=== PATIENT | male | born 1995 | race Caucasian/White ===

== ENCOUNTER 2017-02-17 05:28 | Emergency (ER) | payer OTHER ==
[~2017-02-17] VITALS: Ht 182.9 cm; Wt 140.9 kg
[2017-02-17 05:32] VITALS: BP 129/78; RESP 17; O2SAT 96
--- NOTE | 2017-02-17 05:54 | ED.REPORT ---
HPI-Sore Throat ONLY HPI/PE done Feb 17, 2017 ED Provider: Dr. Yamil Gutierrez M.D. A 21 year old male with a history of asthma presents to the ED with problems swallowing onset one hour prior to arrival. The patient feels as though a piece of the steak he was eating is stuck in his throat. The patient has had similar episodes of this, lasting up to 17 hours at a time. His symptoms resolved just before the interview and he denies other symptoms at this time. The patient requests a GI referral. Nursing Notes Stated Complaint: POSS ESOPHOGEAL SPASMS Chief Complaint: ENT & Mouth Nursing Notes Reviewed: Yes Allergies: Coded Allergies: No Known Allergies (Unverified , 02/17/17) General Time Seen by MD: 05:51 Chief Complaint Other (Problem with swallowing) Hx Obtained From: Patient Arrived By: Walk-in Onset Occurred: 1 - 4 hours ago Symptom Duration: Since onset Severity: Current: No pain currently Severity: Maximum: No pain Pertinent Negative: Pt denies other symptoms Pertinent Negative: Relieved by nothing Context: Immunization Status General: Unknown Recent Healthcare: No recent doctor visit Similar Sx Previous: Yes Past Medical History Past Medical History Asthma Past Surgical History None reported Smoking History Unknown if Ever Smoker Social History Other Social History: Good social support Ambulatory Status Independent Review of Systems Review of Systems Note: + Problem swallowing (resolved) Constitutional: Denies: Fever Respiratory: Denies: Non-productive cough, Shortness of breath GI: Denies: Diarrhea, Vomiting Complete sys rev & neg: except as marked. Physical Exam Initial Vital Signs Vital Signs (First) Date Time Temp Pulse Resp B/P Pulse Ox O2 Delivery O2 Flow Rate FiO2 02/17/17 05:32 36.9 75 17 129/78 96 Room Air Initial VS: Reviewed, Vital signs normal Head / Eyes: Atraumatic, Normocephalic Respiratory: Breath sounds normal, Clear to auscultation, No respiratory distress Cardiovascular: Regular rate & rhythm, Heart sounds normal Abdomen / GI: Soft, Non-tender Skin: Warm, Dry, No cyanosis Neurologic: Alert, Oriented, Nonfocal Psychiatric: Mood/affect normal, Behavior normal, Normal thought content General/Constitutional: Awake, Alert, No acute distress ENT: Airway patent, Mucous membranes moist, No pooling of secretions Neck: Supple, Full range of motion Re-Eval/Medical Decision Med Decision/Clinical Course 21-year-old male with a history of esophageal stricture presents with a steak food bolus in his esophagus. This eventually cleared while awaiting evaluation. He is being discharged home and instructed to follow up with GI for evaluation and possible dilation. Re-Evaluation/Progress : Time of Eval: 06:01 Patient Status: Condition resolved Re-Evaluation/Progress Note: Discussed with patient diagnosis and plan for discharge. Follow-up and return to the ER instructions given. Patient agrees with plan for care and all questions were addressed. Counseled Regarding: Diagnosis, Need for follow-up, When/why to return to ED Discharge & Departure Primary Impression: Impacted esophageal foreign body Encounter type: initial encounter Qualified Code: T18.108A - Unspecified foreign body in esophagus causing other injury, initial encounter Disposition: Home Discharge Condition All VS Reviewed: Yes Condition: Improved Patient Instructions: Esophageal Stricture (ED) Additional Instructions: Follow-up if you have any further problems. Avoid foods that you know to cause this problem. Cut small and chew well. Follow up with GI for possible esophageal dilation. Referrals: Dipak Thurman MD Attestation Portions of this note were transcribed by Dinorah Dowell. I, Dr. Gutierrez, personally performed the history, physical exam, and medical decision-making; I reviewed and confirmed the accuracy of the information in the transcribed note. Signed by: Joshua Gregg, 02/17/2017, 06:15 copies to: Dipak Thurman MD, Howard L MD Feb 17, 2017 05:54 DINORAH DOWELL Feb 17, 2017 06:05
== END 2017-02-17 05:55 | disposition home or self-care (01) ==
LOC: SED 05:28
DX: T18.128A Food in esophagus causing other injury, initial encounter (principal); X50.9XXA Other and unspecified overexertion or strenuous movements or postures, initial encounter; Y93.89 Activity, other specified; Y92.89 Other specified places as the place of occurrence of the external cause; Y99.8 Other external cause status; J45.909 Unspecified asthma, uncomplicated